=== PATIENT | male | born 1980 | race Hispanic/Latino ===

== ENCOUNTER 2018-02-02 08:58 | Emergency (ER) | payer BC ==
[2018-02-02 09:07] VITALS: O2SAT 100; BMI 33.5
--- NOTE | 2018-02-02 10:08 | ED PDOC ---
Upper Extremity Pain/Injury Time Seen by Provider: 02/02/18 09:38 Chief Complaint (Nursing): Upper Extremity Problem/Injury Chief Complaint (Provider): Upper Extremity Problem/ Injury History Per: Patient History/Exam Limitations: no limitations Onset/Duration Of Symptoms: Days (x1) Current Symptoms Are (Timing): Intermittent Episodes Additional Complaint(s): 37 y/o male with no significant PMHx presents to the ED with right shoulder pain, onset yesterday associated with nausea, vomiting, and dizziness. One month ago, patient recalls having a tear in his left shoulder from yoga and having rehabilitation. Patient states taking Motrin from his at 11 pm last night which prompted him to sleep with no pain. Around 5 in the morning he took another Motrin with no relief which prompted his visit to the ED. Denies any urine changes, fever, and chills. PMD:Dr. Sandoval Hebert Past Medical History Reviewed: Historical Data, Nursing Documentation, Vital Signs Vital Signs: Last Vital Signs Temp 97 F L 02/02/18 09:06 Pulse 69 02/02/18 09:06 Resp BP 157/105 H 02/02/18 09:06 Pulse Ox 100 02/02/18 09:06 - Medical History PMH: No Chronic Diseases - Surgical History Surgical History: No Surg Hx - Family History Family History: States: Unknown Family Hx - Living Arrangements Living Arrangements: With Family - Social History Current smoker - smoking cessation education provided: No Alcohol: None Drugs: Denies - Allergies Allergies/Adverse Reactions: Allergies Allergy/AdvReac Type Severity Reaction Status Date / Time No Known Allergies Allergy Verified 02/02/18 10:01 Review of Systems ROS Statement: Except As Marked, All Systems Reviewed And Found Negative Constitutional: Negative for: Fever, Chills Gastrointestinal: Positive for: Nausea, Vomiting Genitourinary Male: Negative for: Hematuria Neurological: Positive for: Dizziness Physical Exam - Reviewed Nursing Documentation Reviewed: Yes Vital Signs Reviewed: Yes - Physical Exam Appears: Positive for: Well, No Acute Distress Head Exam: Positive for: ATRAUMATIC, NORMAL INSPECTION, NORMOCEPHALIC Skin: Positive for: Normal Color Eye Exam: Positive for: Normal appearance Neck: Positive for: Normal Cardiovascular/Chest: Positive for: Regular Rate, Rhythm. Negative for: Murmur Respiratory: Positive for: Normal Breath Sounds. Negative for: Respiratory Distress Gastrointestinal/Abdominal: Positive for: Tenderness (minimal tenderness) Back: Positive for: Normal Inspection Extremity: Positive for: Normal ROM (x4) Neurologic/Psych: Positive for: Alert, Oriented. Negative for: Motor/Sensory Deficits - Laboratory Results Result Diagrams: 02/02/18 10:33 02/02/18 10:33 - ECG O2 Sat by Pulse Oximetry: 100 (RA) Pulse Ox Interpretation: Normal - Progress Re-evaluation Time: 11:00 Condition: Improving,but remains with symptoms Medical Decision Making Medical Decision Making: Time: 10:01 Plan: -EKG -CMP -Troponin 1 Stat -CBC w differential --- Scribe Attestation: Documented by Barbara Dong, acting as a scribe for Dr. Marichuy Gonzalez Provider Scribe Attestation: All medical record entries made by the Scribe were at my direction and personally dictated by me. I have reviewed the chart and agree that the record accurately reflects my personal performance of the history, physical exam, medical decision making, and the department course for this patient. I have also personally directed, reviewed, and agree with the discharge instructions and disposition. Disposition - Clinical Impression Clinical Impression: Shoulder pain - Patient ED Disposition Is Patient to be Admitted: No Doctor Will See Patient In The: Office - Disposition Disposition: Routine/Home Disposition Time: 11:00 Condition: STABLE Instructions: Shoulder Pain (DC) Forms: [employer] (Y[place]i) - POA Present On Arrival: None
[2018-02-02 10:40] LABS: BASO # 0.1 K/uL (0.0-0.2); BASO % 0.8 % (0.0-2.0); EOS # 0.2 K/uL (0.0-0.7); EOS % 2.3 % (0.0-4.0); HEMOGLOBIN 14.6 g/dL (12.0-18.0); LYMPH # 1.9 K/uL (1.0-4.3); LYMPH % 28.2 % (20.0-40.0); MEAN CELL VOLUME 82.7 fl (80.0-94.0); MEAN CORPUSCULAR HGB CONC 33.9 g/dL (33.0-37.0); MEAN PLATELET VOLUME 9.4 fl (7.2-11.7); MONO # 0.6 K/uL (0.0-0.8); MONO % 9.4 % (0.0-10.0); NEUT # 3.9 K/uL (1.8-7.0); NEUT % 59.3 % (50.0-75.0); NRBC % 0.1 % (0.0-0.0); RBC 5.22 Mil/uL (4.40-5.90); RED CELL DISTRIBUTION WIDTH 13.5 % (11.5-14.5); WHITE BLOOD COUNT 6.6 K/uL (4.8-10.8)
[2018-02-02 10:49] LABS: ALB/GLOB RATIO 1.2 (1.0-2.1); ALBUMIN 4.3 g/dL (3.5-5.0); ALT/SGPT 30 U/L (21-72); AST/SGOT 31 U/L (17-59); BLOOD UREA NITROGEN 12 mg/dl (9-20); CALCIUM 9.2 mg/dL (8.4-10.2); GFR NON-AFRICAN AMERICAN > 60
[2018-02-02 11:53] VITALS: BP 149/97; PULSE 63; RESP 18; TEMP 98.6
--- NOTE | 2018-02-03 14:58 | CARD ---
APPROVED REPORT Date of service: 02/02/2018 EKG Measurement Heart [id number] <Conclusion> Normal sinus rhythm Left axis deviation Left anterior fascicular block Abnormal ECG
== END 2018-02-02 11:52 | disposition home or self-care (01) ==
LOC: H.ER 08:58
DX: M25.511 Pain in right shoulder (principal)